=== PATIENT | female | born 1990 | race Caucasian/White ===

== ENCOUNTER 2016-08-09 15:39 | Emergency (ER) | payer BC ==
[~2016-08-09] VITALS: Ht 152.4 cm; Wt 71.0 kg
[2016-08-09 15:58] VITALS: TEMP 36.8; Ht 152.4 cm; Wt 71.0 kg
--- NOTE | 2016-08-09 16:41 | EMERGENCY ROOM VISIT NOTE ---
ED Visit Note First contact with patient: 16:01 This Patient was discussed with the Nurse practitioner, Gena Brown. The pertinent historical and physical exam findings were confirmed. I agree with the studies ordered and with the interpretations of these studies. I agree with the disposition and care plan.
[2016-08-09] MEDS ORDERED: PRENTAB26 PO (16:44)
[2016-08-09 17:16] LABS: BASO % 0.1 %; BASO ABS # 0.02 K/uL (0-0.2); COMPLETE YES; EOS % 1.3 %; IG% 0.3 %; LYMPH % 18.8 %; MEAN CELL VOLUME 87.2 fL (80-100); MEAN CORPUSCULAR HEMOGLOBIN 31.3 pg (25-34); MEAN CORPUSCULAR HGB CONC 35.9 g/dl (32-36); MEAN PLATELET VOLUME 8.5 fL (7.4-10.4); MONO % 5.9 %; NEUT % 73.6 %; PLATELET COUNT 314 K/uL (130-400); WHITE BLOOD COUNT 15.97 K/uL (4.8-10.8)
[2016-08-09 17:27] LABS: URINE APPEARANCE CLEAR (CLEAR); URINE BILIRUBIN NEG (NEG); URINE COLOR YELLOW; URINE NITRITE NEG (NEG); URINE PH 6.5 (4.5-7.5); URINE SPECIFIC GRAVITY 1.021 (1.000-1.030); UROBILINOGEN NEG (NEG)
[2016-08-09 17:28] LABS: MANUAL MICROSCOPIC REQUIRED? NO; REVIEW REQ? NO
--- NOTE | 2016-08-09 18:28 | EMERGENCY ROOM VISIT NOTE ---
History First contact with patient: 16:01 Chief Complaint: ED VAG BLEEDING Stated Complaint: 13 WKS , SPOTTING History of Present Illness The patient is a 25 year old female who presents to the Emergency Room with complaints of vaginal bleeding and pelvic pain that started yesterday. She reports spotting and slight cramps yesterday, the bleeding became heavier today with passage of some small clots. She reports positive test at home about 6 weeks ago, suspect she is approximately 13 weeks based on last menstrual period. She has not had any OB workup for this to date, including no formal ultrasound, stating she recently moved to the area and has not yet been established with an OB. She is , all normal vaginal deliveries and no complications with previous pregnancies, she denies any history of previous bleeding during pregnancies. She denies fevers, chills, chest pain, shortness of breath, nausea, vomiting, diarrhea, constipation, urinary symptoms. Review of Systems HEENT: Denies dizziness, visual problems, hearing loss, tinnitus. Denies difficulty swallowing or oral lesions. PULMONARY: Denies cough, shortness of breath, sputum production or hemoptysis. CARDIOVASCULAR: Denies chest pain, palpitations, dyspnea on exertion, orthopnea or peripheral edema. GASTROINTESTINAL: Denies diarrhea, constipation, nausea, vomiting. + lower abdominal pain. GENITOURINARY: Denies dysuria, frequency, urgency or nocturia. + vaginal bleeding. NEUROLOGIC: Denies history of epilepsy, CVA, TIA or chronic headaches. MUSCULOSKELETAL: Denies history of joint tenderness/swelling. No CVAT. SKIN: Denies rashes or lesions. PSYCHIATRIC: Denies history of depression or mental illness. ENDOCRINE: Denies history of diabetes, thyroid disorders, abnormal hair growth or sexual dysfunction. HEMATOLOGIC: Denies abnormal bruising, abnormal bleeding, enlarged lymph nodes. Social History Smoking Status: Never Smoker Alcohol Use: none Marital Status: Current/Historical Medications Scheduled Multivit/Min/Iron/Fol Ac/Pren ( Vitamin), 1 TAB PO DAILY Allergies Coded Allergies: No Known Allergies (Unverified , 08/09/16) Physical Exam Vital Signs Date Time Temp Pulse Resp B/P Pulse Ox O2 Delivery O2 Flow Rate FiO2 08/09/16 20:01 70 18 133/100 97 Room Air 08/09/16 18:58 80 18 123/79 95 Room Air 08/09/16 15:58 36.8 77 18 148/105 98 Physical Exam VITALS: Afebrile, slightly hypertensive, otherwise normal vital signs. CONSTITUTIONAL: Well appearing and well nourished. Alert and oriented X 4 with normal affect. HEENT: Normocephalic, atraumatic. Pupils equal, round and reactive to light, EOMI. NECK: Supple, full active range of motion without discomfort. RESPIRATORY: Clear to auscultation bilaterally with no wheezing, crackles, rhonchi or stridor. Equal expansion bilaterally. CARDIOVASCULAR: Regular rate and rhythm with no murmurs, rubs or gallops. Normal peripheral perfusion. No edema. GASTROINTESTINAL: Soft, nondistended. Bowel sounds present in all quadrants. Mild tenderness in the suprapubic area with palpation. MUSCULOSKELETAL: Full range of motion of all joints without discomfort. No CVA tenderness with percussion. INTEGUMENTARY: No rash or other significant dermatologic conditions noted. NEUROLOGIC: Cranial nerves II-XII grossly intact. No focal neurologic deficits noted. Medical Decision & Procedures ER Provider Diagnostic Interpretation: ULTRASOUND CLINICAL HISTORY: 13 weeks with vaginal spotting. COMPARISON STUDY: No previous studies for comparison. TECHNIQUE: Transabdominal and transvaginal sonography of the pelvis was performed. FINDINGS: An intrauterine gestational sac is noted and contains a pole with a crown rump length of 3.1 cm which corresponds to an estimated a gestational age of 10 weeks and 1 day. No cardiac activity is identified. A yolk sac was not visualized. The ovaries are sonographically normal. IMPRESSION: Intrauterine gestational sac which contains a embryo with a crown-rump length of 3.1 cm. No cardiac activity identified consistent with embryonic demise. Laboratory Results 08/09/16 16:57 Red Blood Count 4.70, Mean Corpuscular Volume 87.2, Mean Corpuscular Hemoglobin 31.3, Mean Corpuscular Hemoglobin Concent 35.9, Mean Platelet Volume 8.5, Neutrophils (%) (Auto) 73.6, Lymphocytes (%) (Auto) 18.8, Monocytes (%) (Auto) 5.9, Eosinophils (%) (Auto) 1.3, Basophils (%) (Auto) 0.1, Neutrophils # (Auto) 11.76, Lymphocytes # (Auto) 3.00, Monocytes # (Auto) 0.94, Eosinophils # (Auto) 0.20, Basophils # (Auto) 0.02 Test 08/09/16 16:57 08/09/16 17:00 White Blood Count 15.97 K/uL (4.8-10.8) Red Blood Count 4.70 M/uL (4.2-5.4) Hemoglobin 14.7 g/dL (12.0-16.0) Hematocrit 41.0 % (37-47) Mean Corpuscular Volume 87.2 fL (80-100) Mean Corpuscular Hemoglobin 31.3 pg (25-34) Mean Corpuscular Hemoglobin Concent 35.9 g/dl (32-36) Platelet Count 314 K/uL (130-400) Mean Platelet Volume 8.5 fL (7.4-10.4) Neutrophils (%) (Auto) 73.6 % Lymphocytes (%) (Auto) 18.8 % Monocytes (%) (Auto) 5.9 % Eosinophils (%) (Auto) 1.3 % Basophils (%) (Auto) 0.1 % Neutrophils # (Auto) 11.76 K/uL (1.4-6.5) Lymphocytes # (Auto) 3.00 K/uL (1.2-3.4) Monocytes # (Auto) 0.94 K/uL (0.11-0.59) Eosinophils # (Auto) 0.20 K/uL (0-0.5) Basophils # (Auto) 0.02 K/uL (0-0.2) RDW Standard Deviation 38.7 fL (36.4-46.3) RDW Coefficient of Variation 12.0 % (11.5-14.5) Immature Granulocyte % (Auto) 0.3 % Immature Granulocyte # (Auto) 0.05 K/uL (0.00-0.02) Human Chorionic Gonadotropin, Quant 2086 mIU/mL Urine Color YELLOW Urine Appearance CLEAR (CLEAR) Urine pH 6.5 (4.5-7.5) Urine Specific [place] 1.021 (1.000-1.030) Urine Protein NEG (NEG) Urine Glucose (UA) NEG (NEG) Urine Ketones NEG (NEG) Urine Occult Blood NEG (NEG) Urine Nitrite NEG (NEG) Urine Bilirubin NEG (NEG) Urine Urobilinogen NEG (NEG) Urine Leukocyte Esterase NEG (NEG) ED Course 5:00 PM - Bedside ultrasound performed by Dr. Tineo, transabdominal views. pole noted within the uterus with no identifiable cardiac activity, and low-lying and abnormal appearing tissue. Development does not appear consistent with patient's expected dates. Suspect progressing miscarriage. Formal ultrasound ordered for confirmation. 7:30 PM - Patient and her updated on ultrasound results. All questions answered at this time. Discharge instructions and follow-up plans, as well as strict return precautions were discussed with the patient, she verbalizes understanding. Medical Decision Formal ultrasound results confirm diagnosis of demise and impending miscarriage, which is also supported by low level of beta Quant hCG. No active heavy vaginal bleeding at this time, pelvic exam deferred per patient request. She is Rh positive. Leukocytosis noted on labs is most likely attributable to patient's state, she denies any fevers or chills at home or currently. Initial hypertension resolved on recheck vitals, no proteinuria on UA. I discussed patient with Dr. Ritter, OB attending, who agrees with plan for close follow-up and requested the patient call the clinic tomorrow morning for follow-up within the next 48 hours. OB contact number provided to the patient for follow-up, as well as strict return precautions, patient verbalized understanding. Patient also seen and evaluated by the attending physician, who agrees with my assessment and disposition. Impression Primary Impression: demise Departure Information Dispostion Home / Self-Care Condition GOOD Referrals No Doctor, Assigned (PCP) Patient Instructions ED Miscarriage Inevitable, My [facility] Additional Instructions You should follow-up with OB in the next 48 hours. Please call tomorrow morning after 8:30 AM to have an appointment scheduled for follow-up. You should expect to have some heavy bleeding/blood clots and abdominal cramping similar to period cramping over the next 1-2 days. You may take Tylenol or ibuprofen as needed for pain. Please return to the ER for any worsening symptoms, including severe pain, heavy vaginal bleeding (soaking through more than 1 pad per hour), dizziness or passing out, fevers/chills/feeling ill, or any other concerns.
--- NOTE | 2016-08-09 19:01 | DIAGNOSTIC IMAGING REPORT ---
ULTRASOUND CLINICAL HISTORY: 13 weeks with vaginal spotting. COMPARISON STUDY: No previous studies for comparison. TECHNIQUE: Transabdominal and transvaginal sonography of the pelvis was performed. FINDINGS: An intrauterine gestational sac is noted and contains a pole with a crown rump length of 3.1 cm which corresponds to an estimated a gestational age of 10 weeks and 1 day. No cardiac activity is identified. A yolk sac was not visualized. The ovaries are sonographically normal. IMPRESSION: Intrauterine gestational sac which contains a embryo with a crown-rump length of 3.1 cm. No cardiac activity identified consistent with embryonic demise. Electronically signed by: Carlton Malloy M.D. 08/09/2016 6:59 PM Dictated Date/Time: 08/09/2016 6:56 PM
[2016-08-09 20:01] VITALS: BP 133/100; PULSE 70; O2SAT 97
== END 2016-08-09 20:13 | disposition home or self-care (01) ==
LOC: C.EDB 15:41 → C.EDC 20:13
DX: O36.4XX1 Maternal care for intrauterine death, fetus 1 (principal); Z3A.10 10 weeks gestation of pregnancy; R10.9 Unspecified abdominal pain

== ENCOUNTER 2016-08-10 22:21 | Emergency (ER) | payer BC ==
[~2016-08-10] VITALS: Ht 152.4 cm; Wt 70.6 kg
[~2016-08-10 22:21] MED LIST: PRENTAB26 PO
[2016-08-10 22:25] VITALS: TEMP 37; Ht 152.4 cm; Wt 70.6 kg
[2016-08-10] MEDS ORDERED: ONDANSETRON INJ 2 MG/ML 2 ML VIAL IV STA (23:34)
[2016-08-10] MEDS ORDERED: SODIUM CHLORIDE 0.9% 1000ML 1,000 ML IV ONE (23:45)
[2016-08-10] MEDS ORDERED: MoRPHine SULFATE 4 MG/ML 1 ML CARP\\VIAL IV ONE (23:45)
[2016-08-10 23:51] LABS: BASO % 0.2 %; BASO ABS # 0.03 K/uL (0-0.2); COMPLETE YES; EOS % 1.4 %; HEMATOCRIT 37.3 % (37-47); IG% 0.2 %; LYMPH % 18.4 %; LYMPH ABS # 2.93 K/uL (1.2-3.4); MEAN CELL VOLUME 87.4 fL (80-100); MEAN CORPUSCULAR HEMOGLOBIN 31.1 pg (25-34); MEAN CORPUSCULAR HGB CONC 35.7 g/dl (32-36); MEAN PLATELET VOLUME 8.6 fL (7.4-10.4); MONO % 6.8 %; PLATELET COUNT 283 K/uL (130-400); RED BLOOD COUNT 4.27 M/uL (4.2-5.4); WHITE BLOOD COUNT 15.93 K/uL (4.8-10.8)
[2016-08-11 00:14] LABS: BUN/CREATININE RATIO 17.1 (10-20); CALCIUM 8.8 mg/dl (8.5-10.1); CREATININE 0.6 mg/dl (0.60-1.20); POTASSIUM 3.7 mmol/L (3.5-5.1)
[2016-08-11] MEDS ORDERED: MoRPHine SULFATE 4 MG/ML 1 ML CARP\\VIAL IV ONE (00:45)
[2016-08-11 01:47] VITALS: BP 116/82; PULSE 86; O2SAT 95
[2016-08-11] MEDS ORDERED: ONDANSETRON INJ 2 MG/ML 2 ML VIAL ONE (01:55)
[2016-08-11] MEDS ORDERED: NURSING VERBAL MED ORDER ONE (02:00)
[2016-08-11] MEDS ORDERED: ONDANSETRON HOME PACK 4MG OD TAB ONE (03:51)
[2016-08-11] MEDS ORDERED: OXYCODONE IR HOME PACK PO ONE (03:51)
--- NOTE | 2016-08-11 07:16 | DIAGNOSTIC IMAGING REPORT ---
ULTRASOUND CLINICAL HISTORY: demise. ? sac/retained products of conception COMPARISON STUDY: ultrasound August 09, 2016. TECHNIQUE: Transabdominal and transvaginal sonography of the pelvis was performed. FINDINGS: The uterus measures 10.4 x 6.1 x 6.5 cm. There is a 5.5 cm echogenic abnormality within the vagina which likely reflects a blood clot. The endometrium measures 1.7 cm in thickness and is heterogeneous. The appearance has significantly changed since exam of August 09, 2016. The embryo is no longer visualized consistent with demise, as shown on prior ultrasound. The right ovary measures 3.9 x 1.9 x 3.7 cm and the left measures 3.6 x 2.9 x 1.8 cm. IMPRESSION: 1. Thickened endometrium, measuring 1.7 cm. Embryo no longer visualized within the uterus consistent with demise, as shown on prior ultrasound. At most, minimal retained products of conception. 2. 5.5 cm echogenic abnormality within the vagina which likely reflects a blood clot. Electronically signed by: Carlton Malloy M.D. 08/11/2016 7:15 AM Dictated Date/Time: 08/11/2016 7:10 AM
--- NOTE | 2016-08-11 21:56 | EMERGENCY ROOM VISIT NOTE ---
History First contact with patient: 23:16 Chief Complaint: ED VAG BLEEDING Stated Complaint: BLEEDING, MISSCARRIAGE,HERE YESTERDAY History of Present Illness The patient is a 25 year old female who presents to the Emergency Room with complaints of vaginal bleeding for the past 24 hours. The patient was initially seen and evaluated at this facility yesterday where she was found to have demise. She is 13 weeks by dates, however the fetus measured 10 weeks by ultrasound. The patient was doing well at the time of discharge yesterday. She states that about 6 or 7 hours ago she did pass what appeared to be the gestational sac. After passing this she has had copious bloody drainage and discharge. She is unsure how to quantify this and she has been sitting on the toilet for hours. The patient does have some abdominal cramping but not distinct pain. No fevers, chills, lightheadedness, dizziness, chest pain, chest tightness, shortness of breath. She has not taken anything over-the -counter for her symptoms and rates her discomfort a 7/10. Review of Systems More than 10 systems were reviewed and otherwise negative with the exception of history of present illness. Past Medical/Surgical History No chronic medical disease Family History No pertinent family history Social History Smoking Status: Never Smoker Alcohol Use: none Marital Status: Current/Historical Medications Scheduled Multivit/Min/Iron/Fol Ac/Pren ( Vitamin), 1 TAB PO DAILY Allergies Coded Allergies: No Known Allergies (Unverified , 08/10/16) Physical Exam Vital Signs Date Time Temp Pulse Resp B/P Pulse Ox O2 Delivery O2 Flow Rate FiO2 08/11/16 01:47 86 16 116/82 95 Room Air 08/10/16 22:25 37.0 91 18 133/88 97 Room Air Pain Rating (0-10): 4.0 Physical Exam VITALS: Vitals are noted on the nurse's note and reviewed by myself. Vital signs stable. GENERAL: Well-developed, well-nourished, white female who is in mild discomfort. Patient is cooperative with the examination. HEAD: Normocephalic atraumatic. HEART: Regular rate and rhythm without murmurs gallops or rubs. LUNGS: Clear to auscultation bilaterally without wheezes, rales or rhonchi. No retractions or accessory muscle use. ABDOMEN: Positive normal bowel sounds x 4. Soft with mild tenderness in the suprapubic region. No rebound or guarding. No CVA tenderness. : Exam was performed in the presence of female nurse international project manager. Normal- appearing external female genitalia. There is obvious bright red blood coming from the vaginal opening. Speculum exam was attempted, however the vaginal vault is bright red blood. Utilizing cotton swabs I did attempt to obtain visualization of the cervix, however there continued to be significant blood and this was not possible. MUSCULOSKELETAL: No muscle atrophy, erythema, or edema noted. Full range of motion without joint tenderness in all extremities. Medical Decision & Procedures ER Provider Diagnostic Interpretation: ULTRASOUND CLINICAL HISTORY: demise. ? sac/retained products of conception COMPARISON STUDY: ultrasound August 09, 2016. TECHNIQUE: Transabdominal and transvaginal sonography of the pelvis was performed. FINDINGS: The uterus measures 10.4 x 6.1 x 6.5 cm. There is a 5.5 cm echogenic abnormality within the vagina which likely reflects a blood clot. The endometrium measures 1.7 cm in thickness and is heterogeneous. The appearance has significantly changed since exam of August 09, 2016. The embryo is no longer visualized consistent with demise, as shown on prior ultrasound. The right ovary measures 3.9 x 1.9 x 3.7 cm and the left measures 3.6 x 2.9 x 1.8 cm. IMPRESSION: 1. Thickened endometrium, measuring 1.7 cm. Embryo no longer visualized within the uterus consistent with demise, as shown on prior ultrasound. At most, minimal retained products of conception. 2. 5.5 cm echogenic abnormality within the vagina which likely reflects a blood clot. Laboratory Results 08/10/16 23:35 Red Blood Count 4.27, Mean Corpuscular Volume 87.4, Mean Corpuscular Hemoglobin 31.1, Mean Corpuscular Hemoglobin Concent 35.7, Mean Platelet Volume 8.6, Neutrophils (%) (Auto) 73.0, Lymphocytes (%) (Auto) 18.4, Monocytes (%) (Auto) 6.8, Eosinophils (%) (Auto) 1.4, Basophils (%) (Auto) 0.2, Neutrophils # (Auto) 11.64, Lymphocytes # (Auto) 2.93, Monocytes # (Auto) 1.08, Eosinophils # (Auto) 0.22, Basophils # (Auto) 0.03 08/10/16 23:35 Test 08/10/16 23:35 White Blood Count 15.93 K/uL (4.8-10.8) Red Blood Count 4.27 M/uL (4.2-5.4) Hemoglobin 13.3 g/dL (12.0-16.0) Hematocrit 37.3 % (37-47) Mean Corpuscular Volume 87.4 fL (80-100) Mean Corpuscular Hemoglobin 31.1 pg (25-34) Mean Corpuscular Hemoglobin Concent 35.7 g/dl (32-36) Platelet Count 283 K/uL (130-400) Mean Platelet Volume 8.6 fL (7.4-10.4) Neutrophils (%) (Auto) 73.0 % Lymphocytes (%) (Auto) 18.4 % Monocytes (%) (Auto) 6.8 % Eosinophils (%) (Auto) 1.4 % Basophils (%) (Auto) 0.2 % Neutrophils # (Auto) 11.64 K/uL (1.4-6.5) Lymphocytes # (Auto) 2.93 K/uL (1.2-3.4) Monocytes # (Auto) 1.08 K/uL (0.11-0.59) Eosinophils # (Auto) 0.22 K/uL (0-0.5) Basophils # (Auto) 0.03 K/uL (0-0.2) RDW Standard Deviation 39.2 fL (36.4-46.3) RDW Coefficient of Variation 12.2 % (11.5-14.5) Immature Granulocyte % (Auto) 0.2 % Immature Granulocyte # (Auto) 0.03 K/uL (0.00-0.02) Anion Gap 9.0 mmol/L (3-11) Est Creatinine Clear Calc Drug Dose 124.6 ml/min Estimated GFR () 145.8 Estimated GFR (Non- 125.8 BUN/Creatinine Ratio 17.1 (10-20) Calcium Level 8.8 mg/dl (8.5-10.1) Total Bilirubin 0.4 mg/dl (0.2-1) Aspartate Amino Transf (AST/SGOT) 11 U/L (15-37) Alanine Aminotransferase (ALT/SGPT) 19 U/L (12-78) Alkaline Phosphatase 78 U/L (45-117) Total Protein 7.5 gm/dl (6.4-8.2) Albumin 3.7 gm/dl (3.4-5.0) Globulin 3.8 gm/dl (2.5-4.0) Albumin/Globulin Ratio 1.0 (0.9-2) Human Chorionic Gonadotropin, Quant 956 mIU/mL Medications Administered Medications (Trade) Dose Ordered Sig/Rufus Route Start Time Stop Time Status Last Admin Dose Admin Sodium Chloride (Nss 1000ml) 1,000 ml @ 999 mls/hr Q1H1M ONCE IV 08/10/16 23:45 08/11/16 00:45 DC 08/10/16 23:44 999 MLS/HR Morphine Sulfate (MoRPHine SULFATE INJ) 4 mg NOW ONCE IV 08/10/16 23:45 08/10/16 23:46 DC 08/10/16 23:44 4 MG Ondansetron HCl (Zofran Inj) 4 mg NOW STAT IV 08/10/16 23:34 08/10/16 23:36 DC 08/10/16 23:44 4 MG Morphine Sulfate (MoRPHine SULFATE INJ) 4 mg NOW ONCE IV 08/11/16 00:45 08/11/16 00:46 DC 08/11/16 00:42 4 MG Ondansetron HCl (Zofran Inj) 4 mg STK-MED ONCE .ROUTE 08/11/16 01:55 08/11/16 01:56 DC 08/11/16 01:55 4 MG Ondansetron HCl (ZOFRAN ODT 4MG Home Pack) 1 homepack STK-MED ONCE .ROUTE 08/11/16 03:51 08/11/16 03:52 DC 08/11/16 03:51 1 HOMEPACK Oxycodone HCl (Roxicodone Immediate Rel 5MG Home Pack) 1 homepack STK-MED ONCE PO 08/11/16 03:51 08/11/16 03:52 DC 08/11/16 03:51 1 HOMEPACK ED Course Physical exam and history were performed. Nursing notes and EMR were reviewed. Patient appears to have vaginal bleeding in the context of a miscarriage. The patient was seen yesterday and seems to have passed the gestational sac at home. The patient does have significant bleeding on exam to the point where I' m unable to visualize the cervix as the vaginal vault is filled with blood. IV access was established and labs were obtained. The patient was hydrated and medicated as above. The case was discussed with SWITCH BOX INSTALLER Dr Mitchell pipe fitter ammonia who recommended ultrasound. The patient's blood work is as above and was reviewed. Her blood cell count is stable. She has had a small drop in her hemoglobin of about 1.5 points. She does not have a significant anemia from this. There is no significant electrolyte imbalance. The ultrasound appears to show retained products of conception but no gestational sac. The patient was quite comfortable after medication here in the department. I discussed the case with SWITCH BOX INSTALLER after return of the ultrasound. The patient appears to be going through a normal miscarriage process. The patient is felt to be stable for discharge home as her hemoglobin is decreasing at an expected rate. Patient will be given instructions to use ibuprofen 600 mg every 6 hours. She will also be given a short course of Vicodin for additional pain control. She will be seen by SWITCH BOX INSTALLER tomorrow. She is to return to the ER with any new, worsening, or concerning symptoms. Of note, the patient was seen at times through a [facility] downtime. Additional information should be scanned into the EMR. The chart was completed utilizing [employer] Speech Voice Recognition Software. Grammatical errors, random word insertions, pronoun errors, and incomplete sentences are an occasional consequence of this system due to software limitations, ambient noise, and hardware issues. Any formal questions or concerns about the content, text, or information contained within the body of this dictation should be directly addressed to the provider for clarification. . Medical Decision Differential diagnosis: Etiologies such as ectopic , dysfunction uterine bleeding, bleeding dyscrasia, trauma, infection, as well as others were entertained. Impression Primary Impression: Miscarriage Departure Information Dispostion Home / Self-Care Condition FAIR Referrals No Doctor, Assigned (PCP) Forms WORK / SCHOOL INSTRUCTIONS, HOME CARE DOCUMENTATION FORM, IMPORTANT VISIT INFORMATION Patient Instructions [facility]
== END 2016-08-11 03:55 | disposition home or self-care (01) ==
LOC: C.EDB 22:22 → C.EDA 08-11 03:55
DX: O03.9 Complete or unspecified spontaneous abortion without complication (principal); Z3A.13 13 weeks gestation of pregnancy

== ENCOUNTER → 2016-08-12 | Outpatient (CLI) | payer BC ==
[2016-08-12 14:42] LABS: BASO % 0.2 %; BASO ABS # 0.02 K/uL (0-0.2); COMPLETE YES; EOS % 1.6 %; HEMATOCRIT 32.2 % (37-47); IG% 0.3 %; LYMPH % 21.6 %; LYMPH ABS # 2.12 K/uL (1.2-3.4); MEAN CELL VOLUME 88.2 fL (80-100); MEAN CORPUSCULAR HEMOGLOBIN 30.4 pg (25-34); MEAN CORPUSCULAR HGB CONC 34.5 g/dl (32-36); MEAN PLATELET VOLUME 8.7 fL (7.4-10.4); MONO % 6.2 %; NEUT % 70.1 %; PLATELET COUNT 308 K/uL (130-400); RED BLOOD COUNT 3.65 M/uL (4.2-5.4); WHITE BLOOD COUNT 9.81 K/uL (4.8-10.8)
== END | disposition home or self-care (01) ==
LOC: C.LAB1850 13:04
PROVIDERS: ATTEND Obstetrics & Gynecology
DX: D72.829 Elevated white blood cell count, unspecified (principal)